=== PATIENT | female | born 1985 | race Caucasian/White ===

== ENCOUNTER → 2017-06-19 | Outpatient (CLI) | payer BC ==
[~2017-06-19] MED LIST: CEPH500 PO
[2017-06-20 11:27] LABS: Candida species (DNA Probe) Negative (NEGATIVE); G. vaginalis (DNA Probe) Negative (NEGATIVE); T. vaginalis (DNA Probe) Negative (NEGATIVE)
== END | disposition home or self-care (01) ==
LOC: LAB EV 14:08
PROVIDERS: Nurse Practitioner Family
DX: N89.8 Other specified noninflammatory disorders of vagina (principal)
CPT/HCPCS: 87070; 87205; 87480; 87510; 87660

== ENCOUNTER → 2018-07-21 | Outpatient (CLI) | payer BC ==
[2018-07-23 14:07] LABS: HPV 16 Negative (Negative); HPV 18 Negative (Negative); HPV OTHER HR TYPES Negative (Negative)
== END | disposition home or self-care (01) ==
LOC: LAB SHORT 18:01 → LAB 18:01
PROVIDERS: Nurse Practitioner Women's Health
DX: Z12.4 Encounter for screening for malignant neoplasm of cervix (principal)
CPT/HCPCS: 87624; G0123

== ENCOUNTER 2019-03-27 08:05 | Inpatient (IN) | payer BC ==
[~2019-03-27] VITALS: Ht 162.6 cm; Wt 59.0 kg
[2019-03-27 09:43] LABS: BASOPHILS ABSOLUTE AUTO 0.03 K/mm3 (0.00-0.23); BASOPHILS PERCENT AUTO 0 % (0-2); EOSINOPHILS PERCENT AUTO 0 % (0-6); Hematocrit 42.1 % (33.0-51.0); Hemoglobin 14.1 g/dL (11.5-16.0); IMMATURE GRAN ABSOLUTE AUTO 0.05 K/mm3 (0.00-0.10); IMMATURE GRAN PERCENT AUTO 0 % (0-1); LYMPHOCYTES ABSOLUTE AUTO 0.83 K/mm3 (0.84-5.20); LYMPHOCYTES PERCENT AUTO 6 % (21-46); MONOCYTES ABSOLUTE AUTO 0.89 K/mm3 (0.16-1.47); MONOCYTES PERCENT AUTO 6 % (4-13); Mean Corpuscular HGB 29.4 pg (26.0-34.0); Mean Corpuscular HGB Conc 33.5 g/dL (31.5-36.5); Mean Corpuscular Volume 88 fL (80-100); NEUTROPHILS ABSOLUTE AUTO 12.18 K/mm3 (1.96-9.15); NEUTROPHILS PERCENT AUTO 87 % (41-73); Platelet Count 250 K/mm3 (150-400); RDW Standard Deviation 38.7 fL (35.1-46.3); Red Blood Cell Count 4.79 M/mm3 (3.80-5.20); White Blood Cell Count 13.98 K/mm3 (4.00-11.30)
[2019-03-27 09:59] LABS: Source, Urine Clean Catch
[2019-03-27 10:04] LABS: Alanine Aminotransfer (ALT/SGP 18 U/L (12-78); Albumin, Blood 3.7 g/dL (3.4-5.0); Albumin/Globulin Ratio 1.1 (0.8-1.8); Alk Phos 41 U/L (50-136); Anion Gap 5 mmol/L (6-16); Aspartate Aminotrans (AST/SGOT 16 U/L (12-37); Bilirubin, Total 0.7 mg/dL (0.1-1.0); Blood Urea Nitrogen 9 mg/dL (8-24); Bun/Creatinine Ratio 13.4 (12.0-20.0); CO2, Blood 25 mmol/L (21-32); Calcium, Blood 8.8 mg/dL (8.5-10.1); Chloride, Blood 108 mmol/L (98-108); Creatinine, Blood 0.67 mg/dL (0.40-1.00); Globulin, Blood 3.5 g/dL (2.2-4.0); Glomerular Filtration Rate >60 (60-); Glucose, Blood 96 mg/dL (70-99); Potassium, Blood 3.8 mmol/L (3.5-5.5); Sodium, Blood 138 mmol/L (136-145); Total Protein, Blood 7.2 g/dL (6.4-8.2)
[2019-03-27 10:06] LABS: Appearance, Urine Clear (Clear); Bilirubin, Urine Neg (Neg); Blood, Urine 3+ (Neg); Color, Urine Yellow (P-Yellow); Glucose Qualitative, Urine Neg (Neg); Ketones, Urine 4+ (Neg); Leukocyte Esterase, Urine 1+ (Neg); Nitrite, Urine Neg (Neg); Protein, Urine 2+ (Neg); Urobilinogen, Urine NORM (Normal)
[2019-03-27 10:19] LABS: Red Blood Cells, Urine 0-2 /hpf (0-2)
[2019-03-27 10:20] LABS: Bacteria Mod /hpf; Squamous Epithelial Cells Few /hpf (Few)
--- NOTE | 2019-03-27 14:09 | NUR ---
ADMISSION: REPORT RECIEVED FROM ED RN SAGE. PT TO UNIT AT ABOUT 1330. UPON ASSESSMENT PT IS IN NO VISABLE DISTRESS, A/O, VSS. ABLE TO WALK TO BATHROOM TO VOID. PT REPORTS ABD PAIN IS MANAGED AT THE MOMENT, NO NAUSEA AT THIS TIME. REPORTS SOME TENDERNESS RLQ. PT NPO, EDUCATED ABOUT ROOM, CALL LIGHT. WILL CTM
--- NOTE | 2019-03-27 19:03 | NUR ---
SUMMARY: NO CHANGE SINCE ADMISSION. PT MEDICATED FOR PAIN AND NAUSEA X1. UP INDEPENDENTLY IN THE ROOM. NPO NOW. PLAN IS FOR SURGERY TOMORROW. WILL PASS REPORT TO GEMIIN BURNETT
--- NOTE | 2019-03-28 06:41 | NUR ---
SHIFT SUMMARY LYING IN SUPINE POSITION WITH EYES CLOSED. PAIN MANAGED WITH PRN PAIN MEDS. HAS BEEN NPO FOR MORE THAN 24HRS, IS SCHEDULED TO GO TO OR THIS MORNING. DENIES PAIN, DISCOMFORT, OR FURTHER NEEDS AT THIS TIME. SAFETY MEASURES IN PLACE. WILL GIVE HAND OFF TO ONCOMING SHIFT USING SBAR.
--- NOTE | 2019-03-28 09:24 | NUR ---
03/28/19 0924 Rico Ash PT ON [facility] SCHEDULED AND RECIEVED THIS AM.
--- NOTE | 2019-03-28 11:01 | NUR ---
POST OP: REPORT RECIEVED FROM MARTA, NEMATOLOGIST. PT BACK TO SURGICAL UNIT AT ABOUT 1030. UPON ASSESSMENT PT IS IN NO VISABLE DISTRESS, A/O, VSS. PT DENIES PAIN OR NAUSEA. ABD TENDER TO THE TOUCH, SURGICAL SITES WNL. PT IS DROWSY, BUT ABLE TO WALK TO THE BATHROOM TO VOID. CURRENTLY EATING ICE CHIPS. WILL CTM
[2019-03-28] MEDS ORDERED: HYDR1TAB94 PO (16:15)
--- NOTE | 2019-03-28 16:52 | NUR ---
DISCHARGE: PT DISCHARGE PACKET PRINTED AND PT EDUCATED. SCRIPT FOR [facility] GIVEN TO PT. IV DC'D AND PT VERBALIZED UNDERSTANDING OF MATERIAL. LEFT UNIT VIA WHEELCHAIR WITH FAMILY AT ABOUT 1630.
== END 2019-03-28 16:40 | disposition home or self-care (01) | DRG 343 ==
LOC: ER 08:05 → SURS 11:47
PROVIDERS: Physician Assistant; ADMIT Surgery
PROC: 0DTJ4ZZ Resection of Appendix, Percutaneous Endoscopic Approach (ICD-10-PCS; principal; 2019-03-28 08:30)
DX: K35.80 Unspecified acute appendicitis (principal); Z87.891 Personal history of nicotine dependence
CPT/HCPCS: 36415; 72192; 80053; 81001; 81025; 83690; 85025; 87086; 88304; 96361; 96365; 96375; 96376; 99285-25; A9270-GY; J1100; J1170; J1885; J2250; J2270; J2405; J2543; J2704; J2710; J3010; J7030; J7120

== ENCOUNTER → 2019-04-16 | Outpatient (CLI) | payer BC ==
[~2019-04-16] MED LIST changes: +HYDR1TAB94 PO
== END ==
LOC: LAB SHORT 09:17 → LAB 09:17
DX: R10.9 Unspecified abdominal pain (principal)
CPT/HCPCS: 87086

== ENCOUNTER → 2019-11-29 | Outpatient (CLI) | payer BC | LOC: LAB SHORT 07:15 → LAB EV 07:15 | DX: R10.9 Unspecified abdominal pain (principal) | CPT/HCPCS: 83993 ==

== ENCOUNTER → 2020-03-06 | Outpatient (CLI) | payer BC, OTHER | END | disposition home or self-care (01) | LOC: LAB SHORT 15:33 → LAB EV 15:33 | DX: R05 Cough (principal); Z20.828 Contact with and (suspected) exposure to other viral communicable diseases | CPT/HCPCS: U0003 ==